=== PATIENT | male | born 1975 | race Two or more races ===

== ENCOUNTER 2018-07-22 22:28 | Observation (INO) | END 2018-07-24 11:17 | disposition home or self-care (01) ==

== ENCOUNTER 2018-11-29 05:04 | Emergency (ER) | payer MEDICAID ==
[~2018-11-29] VITALS: Ht 175.3 cm; Wt 81.6 kg
[~2018-11-29 05:04] MED LIST: ASPI-831 PO; ATOR20TA65 PO
[2018-11-29 05:12] VITALS: Ht 175.3 cm; Wt 81.6 kg
[2018-11-29] MEDS ORDERED: SODIUM CHLORIDE 0.9% 1L BAG IV* STA (05:23)
[2018-11-29] MEDS ORDERED: ACETAMINOPHEN 325 MG TAB PO STA (05:23)
--- NOTE | 2018-11-29 06:33 | ERD ---
ER Documentation Chief Complaint Chief Complaint c/o fever/body aches x 3 days, hx of myastenia gravis HPI 43-year-old man complains of tactile fever, body aches, diaphoresis, night sweats for the last 3 days. Last night he also had momentary shortness of breath and felt congested in the chest. He recently began using immunosuppr essants for recent diagnosis of myasthenia gravis. He denies chest pain or shortness of breath at this time, he has had no recent chest pain, no calf or leg swelling, no vomiting or diarrhea, no abdominal pain. ROS All systems reviewed and are negative except as per history of present illness. Medications Home Meds Reported Medications Vitamin K2 (VITAMIN K2) 40 Mcg Tablet, 40 MCG PO DAILY, TAB 11/29/18 Phytonadione (Vit K1) (Vitamin K-1) 500 Mcg Tab.subl, 500 MCG SL DAILY 11/29/18 Ergocalciferol (Vitamin D2) (VITAMIN D2) 50,000 Unit Capsule, 74317 UNIT PO DAILY, CAP 11/29/18 Prednisone* (Prednisone*) 20 Mg Tab, 60 MG PO DAILY, TAB 11/29/18 Azathioprine* (Imuran*) 50 Mg Tab, 50 MG PO BID, TAB 11/29/18 Discontinued Scripts Aspirin (Aspirin) 81 Mg Chew, 81 MG PO DAILY for 30 Days, #30 TAB Prov:GISSELLE TONG 07/24/18 Atorvastatin Calcium (Atorvastatin Calcium) 20 Mg Tablet, 20 MG PO QHS for 30 Days, #30 TAB Prov:GISSELLE TONG 07/24/18 Allergies Allergies: Coded Allergies: No Known Allergy (Unverified , 07/22/18) PMhx/Soc Myasthenia gravis History of Surgery: No Anesthesia Reaction: No Hx Neurological Disorder: No Hx Respiratory Disorders: No Hx Cardiac Disorders: No Hx Psychiatric Problems: No Hx Miscellaneous Medical Probl: Yes (MASTHENIA GRAVIS ) Hx Alcohol Use: Yes Hx Substance Use: Yes (MARIJUANA) Hx Tobacco Use: Yes Smoking Status: Former smoker FmHx Family History: No diabetes Physical Exam Vitals Vital Signs Date Temp Pulse Resp B/P (MAP) Pulse Ox O2 O2 Flow FiO2 Time Delivery Rate 11/29/18 98.1 82 19 115/72 100 Room Air 09:50 (86) 11/29/18 98.1 92 20 110/73 98 07:54 (85) 11/29/18 Nasal 06:37 Cannula 11/29/18 98.0 06:37 11/29/18 99.0 102 13 100/80 100 Room Air 06:27 (87) 11/29/18 102.4 125 18 119/70 95 05:12 (86) Physical Exam Const: No acute distress, febrile Head: Atraumatic Eyes: Normal Conjunctiva ENT: Normal External Ears, Nose and Mouth. Neck: Full range of motion. No meningismus. Resp: Clear to auscultation bilaterally Cardio: Tachycardic and regular, Abd: Soft, non tender, non distended. Normal bowel sounds Skin: No petechiae or rashes Back: No midline or flank tenderness Ext: No cyanosis, or edema Neur: Awake and alert Psych: Normal Mood and Affect Result Diagram: 11/29/18 0616 11/29/1816 Results 24 hrs Laboratory Tests Test 11/29/18 06:16 11/29/18 07:41 White Blood Count 18.1 10^3/ul Red Blood Count 4.31 10^6/ul Hemoglobin 13.1 g/dl Hematocrit 39.6 % Mean Corpuscular Volume 91.9 fl Mean Corpuscular Hemoglobin 30.4 pg Mean Corpuscular Hemoglobin Concent 33.1 g/dl Red Cell Distribution Width 13.3 % Platelet Count 103 10^3/UL Mean Platelet Volume 11.6 fl Immature Granulocytes % 1.700 % Neutrophils % 85.6 % Lymphocytes % 3.6 % Monocytes % 7.3 % Eosinophils % 1.5 % Basophils % 0.3 % Nucleated Red Blood Cells % 0.0 /100WBC Immature Granulocytes # 0.310 10^3/ul Neutrophils # 15.5 10^3/ul Lymphocytes # 0.7 10^3/ul Monocytes # 1.3 10^3/ul Eosinophils # 0.3 10^3/ul Basophils # 0.1 10^3/ul Nucleated Red Blood Cells # 0.0 10^3/ul Prothrombin Time 14.7 Sec Prothrombin Time Ratio 1.1 INR International Normalized Ratio 1.14 Activated Partial Thromboplast Time 28.3 Sec Sodium Level 141 mmol/L Potassium Level 3.8 mmol/L Chloride Level 98 mmol/L Carbon Dioxide Level 29 mmol/L Anion Gap 14 Blood Urea Nitrogen 23 mg/dl Creatinine 1.07 mg/dl Est Glomerular Filtrat Rate mL/min > 60 mL/min Glucose Level 110 mg/dl Lactic Acid Level 1.1 mmol/L Calcium Level 10.0 mg/dl Total Bilirubin 0.8 mg/dl Direct Bilirubin 0.00 mg/dl Indirect Bilirubin 0.8 mg/dl Aspartate Amino Transf (AST/SGOT) 50 IU/L Alanine Aminotransferase (ALT/SGPT) 63 IU/L Alkaline Phosphatase 35 IU/L Troponin I 0.121 ng/ml Total Protein 7.0 g/dl Albumin 3.7 g/dl Globulin 3.30 g/dl Albumin/Globulin Ratio 1.12 Urine Color YELLOW Urine Clarity CLEAR Urine pH 5.0 Urine Specific [place] 1.025 Urine Ketones TRACE mg/dL Urine Nitrite NEGATIVE mg/dL Urine Bilirubin NEGATIVE mg/dL Urine Urobilinogen NEGATIVE mg/dL Urine Leukocyte Esterase NEGATIVE Ana/ul Urine Microscopic RBC 4 /HPF Urine Microscopic WBC 9 /HPF Urine Hemoglobin 1+ mg/dL Urine Glucose NEGATIVE mg/dL Urine Total Protein 1+ mg/dl Current Medications Medications Dose Sig/Facundo Start Time Status Last (Trade) Ordered Route PRN Stop Time Admin Dose Reason Admin Sodium 2,450 ml BOLUS OVER 2 11/29/18 DC 11/29/18 Chloride HOURS STAT 05:23 06:39 (NS) IV* 11/29/18 05:25 650 mg ONCE STAT 11/29/18 DC Acetaminophen PO 05:23 (Tylenol 11/29/18 05:25 Tab) Aspirin 162 mg ONCE ONCE 11/29/18 DC 11/29/18 (Aspirin) PO 07:30 07:33 11/29/18 07:31 Ceftriaxone 50 ml @ ONCE ONCE 11/29/18 DC 11/29/18 Sodium 100 mls/hr IVPB 08:00 07:47 11/29/18 08:29 Procedures/MDM IV line was established patient was placed on risk compliance manager rhythm strip revealed a sinus tachycardia at 110 bpm with upright P and T waves. Patient was febrile, I do not suspect sepsis. Blood, feces, urine cultures have been ordered results are pending I will follow-up. EKG performed, read by me revealed a sinus tachycardia at 105 bpm, normal axis, narrow QRS complex, no concerning ST elevations or depressions noted One AP view of the chest performed, read by me reveals no acute infiltrates, normal mediastinum, sharp costophrenic and cardiac borders, no air under the diaphragm. Otherwise unremarkable chest x-ray. CBC reveals a leukocytosis at 18, electrolytes revealed dehydration with a BUN/creatinine of 23/1, liver function tests were normal, troponin positive at 0.1, flu swabs were negative, urinalysis negative for infection. I administered 2 L normal saline IV and acetaminophen for fever, patient was also given 162 mg p.o. for cardioprotective measures and ceftriaxone 1 g IV as empiric therapy although source of infection has not been identified. Patient is without complaints of chest pain although after explaining the results and workup to him and his family member who is at the bedside they agreed to stay for admission and continued workup as well as cardiology consultation and evaluation. I did explain to them that if fever on immunosuppressant therapy may be a serious issue and also told him that the troponin being elevated is worrisome for acute myocardial infarction which can lead to serious medical issues including heart failure, difficulty breathing, and even cardiac arrest. Patient and his family member was at the bedside agreed to stay for admission and thanked me for care. Patient will be admitted to telemetry for continued medical management and cardiology consultation. Departure Diagnosis: Primary Impression: Fever Fever type: unspecified Qualified Codes: R50.9 - Fever, unspecified Additional Impressions: Myasthenia gravis Non-STEMI (non-ST elevated myocardial infarction) Condition: Serious GISSELLE CALDERA MD Nov 29, 2018 06:33
[2018-11-29] MEDS ORDERED: AZAT50TA31 PO (06:48)
[2018-11-29] MEDS ORDERED: ERGO500013 PO (06:49)
[2018-11-29] MEDS ORDERED: PHYT500T SL (06:49)
[2018-11-29] MEDS ORDERED: PRED20TA PO (06:49)
[2018-11-29] MEDS ORDERED: VITA40TA PO (06:50)
[2018-11-29] MEDS ORDERED: ASPIRIN 81 MG TAB PO ONE (07:30)
[2018-11-29] MEDS ORDERED: CEFTRIAXONE 1 GM/50 ML (PMX) 50 ML IVPB ONE (08:00)
[2018-11-29 09:50] VITALS: BP 115/72; PULSE 82; RESP 19
== END 2018-11-29 10:23 | disposition left against medical advice (07) ==
LOC: E/R 05:04 → CANRESERV 08:48 → E/R 10:23 → CANBEDREQ 11-30 20:12
DX: G70.00 Myasthenia gravis without (acute) exacerbation (principal); I21.4 Non-ST elevation (NSTEMI) myocardial infarction; Z79.82 Long term (current) use of aspirin; Z87.891 Personal history of nicotine dependence
CPT/HCPCS: 36415; 71045; 80053; 81001; 83605; 84484; 85025; 85610; 85730; 87040; 87086; 87400; 93005; 96374; J0696; J7030; Z7502; Z7610